=== PATIENT | female | born 1995 | race Caucasian/White ===

== ENCOUNTER 2017-01-20 07:31 | Day surgery (SDC) | payer BC ==
[2017-01-19 15:48] LABS: CHLORIDE,CL 107 mmol/L (98-110); SODIUM,NA 142 mmol/L (136-146)
[~2017-01-20 07:31] MED LIST: Lactated Ringers 1,000 ML IV SCH; Sodium Chloride 0.9% 10 ML Syringe FLUSH PRN; Sodium Chloride 0.9% 2.5 ML Syringe FLUSH PRN
[2017-01-20] MEDS ORDERED: Propofol 200 MG/20 ML SDV ONE (07:41)
[2017-01-20] MEDS ORDERED: fentaNYL 100 MCG/2 ML SDV ONE ×3 (07:41→10:18)
[2017-01-20] MEDS ORDERED: Octyl 2-Cyanoacrylate 1 Tube ONE (07:41)
[2017-01-20] MEDS ORDERED: Midazolam 1 MG/ML 2 ML SDV ONE (07:41)
--- NOTE | 2017-01-20 08:23 | PCM.PREANE ---
Preanesthetic Assessment - Anesthesia/Transfusion/Family Hx Anesthesia History: Prior Anesthesia Without Reaction Family History of Anesthesia Reaction: No Transfusion History: No Prior Transfusion(s) - Review of Systems General: No Symptoms Pulmonary: No Symptoms Cardiovascular: No Symptoms Gastrointestinal: No Symptoms Neurological: No Symptoms Other: Reports: None - Physical Assessment NPO Status Date: 01/19/17 O2 Sat by Pulse Oximetry: 98 Respiratory Rate: 16 Vital Signs: Last Vital Signs Temp 36.2 C 01/20/17 07:40 Pulse 100 01/20/17 07:40 Resp 16 01/20/17 07:40 BP 150/82 H 01/20/17 07:40 Pulse Ox 98 01/20/17 07:40 Height: 1.6 m Weight: 107.048 kg ASA Class: 2 Mental Status: Alert & Oriented x3 Airway Class: Mallampati = 1 Dentition: Reports: Normal Dentition ROM/Head Extension: Full Lungs: Clear to Auscultation, Normal Respiratory Effort Cardiovascular: Regular Rate, Regular Rhythm - Lab Values: Laboratory Last Values WBC 8.75 K/uL (4.0-11.0) 01/19/17 15:16 RBC 4.76 M/uL (4.30-5.90) 01/19/17 15:16 Hgb 12.5 g/dL (12.0-16.0) 01/19/17 15:16 Hct 38.8 % (36.0-46.0) 01/19/17 15:16 MCV 81.5 fL (80.0-98.0) 01/19/17 15:16 MCH 26.3 pg (27.0-32.0) L 01/19/17 15:16 MCHC 32.2 g/dL (31.0-37.0) 01/19/17 15:16 RDW Std Deviation 42.5 fl (28.0-62.0) 01/19/17 15:16 RDW Coeff of Ekta 14 % (11.0-15.0) 01/19/17 15:16 Plt Count 237 K/uL (150-400) 01/19/17 15:16 MPV 9.30 fL (7.40-12.00) 01/19/17 15:16 Nucleated RBC % 0.0 /100WBC 01/19/17 15:16 Nucleated RBCs # 0 K/uL 01/19/17 15:16 Sodium 142 mmol/L (136-146) 01/19/17 15:16 Potassium 3.8 mmol/L (3.5-5.1) 01/19/17 15:16 Chloride 107 mmol/L (98-110) 01/19/17 15:16 Carbon Dioxide 26 mmol/L (21-31) 01/19/17 15:16 BUN 10 mg/dL (6.0-23.0) 01/19/17 15:16 Creatinine 0.9 mg/dL (0.6-1.5) 01/19/17 15:16 Est Cr Clr Drug Dosing 81.79 mL/min 01/19/17 15:16 Estimated GFR (MDRD) > 60.0 ml/min 01/19/17 15:16 Glucose 94 mg/dL (60-110) 01/19/17 15:16 Calcium 9.0 mg/dL (8.8-10.8) 01/19/17 15:16 HCG, Qual NEGATIVE (NEG) 01/19/17 15:16 Blood Type O NEGATIVE 01/19/17 15:16 Antibody Screen NEGATIVE 01/19/17 15:16 - Allergies Allergies/Adverse Reactions: Allergies Allergy/AdvReac Type Severity Reaction Status Date / Time No Known Allergies Allergy Verified 01/17/17 09:58 - Anesthesia Plan Pre-Op Medication Ordered: None - Acknowledgements Anesthesia Type Planned: General Anesthesia Pt an Appropriate Candidate for the Planned Anesthesia: Yes Alternatives and Risks of Anesthesia Discussed w Pt/Guardian: Yes Pt/Guardian Understands and Agrees with Anesthesia Plan: Yes PreAnesthesia Questionnaire HEENT History: Reports: Other (See Below) Other HEENT History: wears glasses/contacts TUBE BLOWER History: Reports: Endocrine/Metabolic History: Reports: Obesity/BMI 30+ - Past Surgical History Head Surgeries/Procedures: Reports: None HEENT Surgical History: Reports: Other (See Below) Other HEENT Surgeries/Procedures: repair of cleft lip x3 - SUBSTANCE USE Smoking Status *Q: Never Smoker Recreational Drug Use History: No - HOME MEDS Home Medications: Home Meds Norgestimate-Ethinyl Estradiol [Tri-Sprintec Tablet] 1 tab PO ASDIRECTED [History] - CURRENT (IN HOUSE) MEDS Current Meds: Current Medications Fentanyl (Sublimaze) 50 mcg IVPUSH Q5M PRN PRN Reason: Pain (severe 7-10) Stop: 01/20/17 13:00 Lactated Ringer's (Ringers, Lactated) 1,000 mls @ 500 mls/hr IV .BOLUS OCTAVIO Last Admin: 01/20/17 07:41 Dose: 500 mls/hr Sodium Chloride (Saline Flush) 10 ml FLUSH ASDIRECTED PRN PRN Reason: Keep Vein Open Sodium Chloride (Saline Flush) 2.5 ml FLUSH ASDIRECTED PRN PRN Reason: Keep Vein Open Discontinued Medications Fentanyl (Sublimaze) Confirm Administered Dose 100 mcg .ROUTE .STK-MED ONE Stop: 01/20/17 07:42 Midazolam HCl (Versed 1 Mg/Ml) Confirm Administered Dose 2 mg .ROUTE .STK-MED ONE Stop: 01/20/17 07:42 Octyl Cyanoacrylate (Dermabond Advance) Confirm Administered Dose 1 applic .ROUTE .STK-MED ONE Stop: 01/20/17 07:42 Propofol (Diprivan 20 Ml) Confirm Administered Dose 200 mg .ROUTE .STK-MED ONE Stop: 01/20/17 07:42
[2017-01-20] MEDS ORDERED: Metoclopramide 10 MG/2 ML SDV ONE (09:08)
[2017-01-20] MEDS ORDERED: Ondansetron 4 MG/2 ML SDV ONE (09:08)
[2017-01-20] MEDS ORDERED: Rocuronium 10 MG/ML 10 ML Syringe ONE (09:08)
[2017-01-20] MEDS ORDERED: Ketorolac 30 MG/ML SDV ONE (09:08)
[2017-01-20] MEDS ORDERED: diphenhydrAMINE 50 MG/ML SDV ONE (09:08)
[2017-01-20] MEDS ORDERED: Neostigmine Methylsulfate 1 MG/ML 5 ML Syringe ONE (09:08)
[2017-01-20] MEDS ORDERED: Lidocaine 2% 5 ML SDV ONE (09:33)
[2017-01-20] MEDS ORDERED: Promethazine 25 MG/ML SDV IM PRN (10:17)
[2017-01-20] MEDS ORDERED: Morphine 2 MG/ML Syringe IVPUSH PRN (10:17)
[2017-01-20] MEDS ORDERED: Ketorolac 30 MG/ML SDV IVPUSH PRN (10:17)
[2017-01-20] MEDS ORDERED: Ketorolac 30 MG/ML SDV IVPUSH ONE (10:17)
[2017-01-20] MEDS ORDERED: Ondansetron 4 MG/2 ML SDV IVPUSH PRN (10:17)
[2017-01-20] MEDS ORDERED: Acetaminophen/oxyCODONE 325-5 MG Tab PO PRN ×2 (10:17)
[2017-01-20] MEDS ORDERED: Morphine 4 MG/ML Syringe IVPUSH PRN (10:17)
--- NOTE | 2017-01-20 10:22 | PCM.OPNOTE ---
- General Post-Op/Procedure Note Date of Surgery/Procedure: 01/20/17 Findings: 10 cm left ovarian cyst Pre Op Diagnosis: Pelvic pain, Left ovarian cyst Post-Op Diagnosis: Same Anesthesia Technique: General ET Tube Primary Surgeon: Kee Arrieta Associate Financial Representative: Rosalina Troncoso EBL in mLs: 25 Complications: None Condition: Good
--- NOTE | 2017-01-20 10:23 | PCM.DCSUM1 ---
Discharge Summary - Discharge Data Discharge Date: 01/20/17 Discharge Disposition: Home, Self-Care 01 Condition: Good - Patient Instructions Diet: Usual Diet as Tolerated Driving: Do Not Drive Showering/Bathing: July Shower Wound/Incision Care: Keep Operative Site/Wound Site Clean and Dry Notify Provider of: Fever, Increased Pain - Discharge Plan Home Medications: Home Meds Norgestimate-Ethinyl Estradiol [Tri-Sprintec Tablet] 1 tab PO ASDIRECTED [History] - General Info Date of Service: 01/20/17 Functional Status: Reports: Pain Controlled - Review of Systems General: Reports: No Symptoms HEENT: Reports: No Symptoms Pulmonary: Reports: No Symptoms Cardiovascular: Reports: No Symptoms Gastrointestinal: Reports: No Symptoms Genitourinary: Reports: No Symptoms Musculoskeletal: Reports: No Symptoms Skin: Reports: No Symptoms Neurological: Reports: No Symptoms Psychiatric: Reports: No Symptoms - Patient Data Vitals - Most Recent: Last Vital Signs Temp 36.2 C 01/20/17 07:40 Pulse 100 01/20/17 07:40 Resp 16 01/20/17 08:23 BP 150/82 H 01/20/17 07:40 Pulse Ox 98 01/20/17 08:23 Weight - Most Recent: 107.048 kg Lab Results - Last 24 hrs: Laboratory Results - last 24 hr 01/19/17 01/19/17 01/19/17 Range/Units 15:16 15:16 15:16 WBC 8.75 (4.0-11.0) K/uL RBC 4.76 (4.30-5.90) M/uL Hgb 12.5 (12.0-16.0) g/dL Hct 38.8 (36.0-46.0) % MCV 81.5 (80.0-98.0) fL MCH 26.3 L (27.0-32.0) pg MCHC 32.2 (31.0-37.0) g/dL RDW Std Deviation 42.5 (28.0-62.0) fl RDW Coeff of Ekta 14 (11.0-15.0) % Plt Count 237 (150-400) K/uL MPV 9.30 (7.40-12.00) fL Nucleated RBC % 0.0 /100WBC Nucleated RBCs # 0 K/uL Sodium 142 (136-146) mmol/L Potassium 3.8 (3.5-5.1) mmol/L Chloride 107 (98-110) mmol/L Carbon Dioxide 26 (21-31) mmol/L BUN 10 (6.0-23.0) mg/dL Creatinine 0.9 (0.6-1.5) mg/dL Est Cr Clr Drug Dosing 81.79 mL/min Estimated GFR (MDRD) > 60.0 ml/min Glucose 94 (60-110) mg/dL Calcium 9.0 (8.8-10.8) mg/dL HCG, Qual NEGATIVE (NEG) Blood Type Antibody Screen 01/19/17 Range/Units 15:16 WBC (4.0-11.0) K/uL RBC (4.30-5.90) M/uL Hgb (12.0-16.0) g/dL Hct (36.0-46.0) % MCV (80.0-98.0) fL MCH (27.0-32.0) pg MCHC (31.0-37.0) g/dL RDW Std Deviation (28.0-62.0) fl RDW Coeff of Ekta (11.0-15.0) % Plt Count (150-400) K/uL MPV (7.40-12.00) fL Nucleated RBC % /100WBC Nucleated RBCs # K/uL Sodium (136-146) mmol/L Potassium (3.5-5.1) mmol/L Chloride (98-110) mmol/L Carbon Dioxide (21-31) mmol/L BUN (6.0-23.0) mg/dL Creatinine (0.6-1.5) mg/dL Est Cr Clr Drug Dosing mL/min Estimated GFR (MDRD) ml/min Glucose (60-110) mg/dL Calcium (8.8-10.8) mg/dL HCG, Qual (NEG) Blood Type O NEGATIVE Antibody Screen NEGATIVE Med Orders - Current: Current Medications Fentanyl (Sublimaze) 50 mcg IVPUSH Q5M PRN PRN Reason: Pain (severe 7-10) Stop: 01/20/17 13:00 Lactated Ringer's (Ringers, Lactated) 1,000 mls @ 500 mls/hr IV .BOLUS OCTAVIO Last Admin: 01/20/17 07:41 Dose: 500 mls/hr Ketorolac Tromethamine (Toradol) 30 mg IVPUSH ONETIME ONE Stop: 01/20/17 10:18 Ketorolac Tromethamine (Toradol) 30 mg IVPUSH Q6H PRN PRN Reason: Pain (severe 7-10) Stop: 01/25/17 10:17 Morphine Sulfate (Morphine) 2 mg IVPUSH Q2H PRN PRN Reason: Pain (severe 7-10) Morphine Sulfate (Morphine) 4 mg IVPUSH Q2H PRN PRN Reason: Pain (severe 7-10) Ondansetron HCl (Zofran) 4 mg IVPUSH Q6H PRN PRN Reason: Nausea/Vomiting Oxycodone/Acetaminophen (Percocet 325-5 Mg) 1 tab PO Q4H PRN PRN Reason: Pain (moderate 4-6) Oxycodone/Acetaminophen (Percocet 325-5 Mg) 2 tab PO Q4H PRN PRN Reason: Pain (moderate 4-6) Promethazine HCl (Phenergan) 25 mg IM Q6H PRN PRN Reason: Nausea/Vomiting Sodium Chloride (Saline Flush) 10 ml FLUSH ASDIRECTED PRN PRN Reason: Keep Vein Open Sodium Chloride (Saline Flush) 2.5 ml FLUSH ASDIRECTED PRN PRN Reason: Keep Vein Open Discontinued Medications Diphenhydramine HCl (Benadryl) Confirm Administered Dose 50 mg .ROUTE .STK-MED ONE Stop: 01/20/17 09:09 Fentanyl (Sublimaze) Confirm Administered Dose 100 mcg .ROUTE .STK-MED ONE Stop: 01/20/17 07:42 Fentanyl (Sublimaze) Confirm Administered Dose 100 mcg .ROUTE .STK-MED ONE Stop: 01/20/17 09:10 Fentanyl (Sublimaze) Confirm Administered Dose 100 mcg .ROUTE .STK-MED ONE Stop: 01/20/17 10:19 Glycopyrrolate () Confirm Administered Dose 1 mg .ROUTE .STK-MED ONE Stop: 01/20/17 09:09 Ketorolac Tromethamine (Toradol) Confirm Administered Dose 30 mg .ROUTE .STK- MED ONE Stop: 01/20/17 09:09 Lidocaine (Xylocaine-Mpf 2%) Confirm Administered Dose 5 ml .ROUTE .STK-MED ONE Stop: 01/20/17 09:34 Metoclopramide HCl (Reglan) Confirm Administered Dose 10 mg .ROUTE .STK-MED ONE Stop: 01/20/17 09:09 Midazolam HCl (Versed 1 Mg/Ml) Confirm Administered Dose 2 mg .ROUTE .STK-MED ONE Stop: 01/20/17 07:42 Neostigmine Methylsulfate (Neostigmine) Confirm Administered Dose 5 mg .ROUTE .STK-MED ONE Stop: 01/20/17 09:09 Octyl Cyanoacrylate (Dermabond Advance) Confirm Administered Dose 1 applic .ROUTE .STK-MED ONE Stop: 01/20/17 07:42 Ondansetron HCl (Zofran) Confirm Administered Dose 4 mg .ROUTE .STK-MED ONE Stop: 01/20/17 09:09 Propofol (Diprivan 20 Ml) Confirm Administered Dose 200 mg .ROUTE .STK-MED ONE Stop: 01/20/17 07:42 Rocuronium [place] (Zemuron) Confirm Administered Dose 100 mg .ROUTE .STK-MED ONE Stop: 01/20/17 09:09 - Exam General: Reports: Alert, Oriented HEENT: Reports: Pupils Equal, Pupils Reactive, EOMI, Mucous Membr. Moist/[place] Neck: Reports: Supple Lungs: Reports: Clear to Auscultation, Normal Respiratory Effort Cardiovascular: Reports: Regular Rate, Regular Rhythm GI/Abdominal Exam: Normal Bowel Sounds, Soft, Non-Tender, No Organomegaly, No Distention, No Abnormal Bruit, No Mass, Pelvis Stable (Female) Exam: Normal External Exam, Normal Speculum Exam, Normal Bimanual Exam Rectal (Female) Exam: Normal Exam, Normal Rectal Tone Back Exam: Reports: Normal Inspection, Full Range of Motion Extremities: Normal Inspection, Normal Range of Motion, Non-Tender, No Pedal Edema, Normal Capillary Refill Skin: Reports: Warm, Dry, Intact Wound/Incisions: Reports: Healing Well Neurological: Reports: No New Focal Deficit Psy/Mental Status: Reports: Alert, Normal Affect, Normal Mood *Q Meaningful Use (DIS) - VTE *Q VTE Criteria *Q: - Stroke *Q Stroke Criteria *Q: - AMI *Q AMI Criteria *Q:
--- NOTE | 2017-01-20 10:40 | PCM.POSTAN ---
POST ANESTHESIA ASSESSMENT - MENTAL STATUS Mental Status: Alert, Oriented - RESPIRATORY Respiratory Status: Respiratory Rate WNL, Airway Patent, O2 Saturation Stable - CARDIOVASCULAR CV Status: Pulse Rate WNL, Blood Pressure Stable - GASTROINTESTINAL GI Status: No Symptoms - PAIN Pain Score: 0 - POST OP HYDRATION Hydration Status: Adequate & Stable
[2017-01-20] MEDS: fentaNYL 100 MCG/2 ML SDV IVPUSH PRN ×2 (10:58→11:05)
--- NOTE | 2017-01-20 12:07 | PCM48HPAN ---
Post Anesthesia Note - EVALUATION WITHIN 48HRS OF ANESTHETIC Vital Signs in Normal Range: Yes Patient Participated in Evaluation: Yes Respiratory Function Stable: Yes Airway Patent: Yes Cardiovascular Function Stable: Yes Hydration Status Stable: Yes Pain Control Satisfactory: Yes Nausea and Vomiting Control Satisfactory: Yes Mental Status Recovered: Yes
--- NOTE | 2017-01-20 17:08 | OR ---
SURGEON: Kee Arrieta MD DATE OF PROCEDURE: PREOPERATIVE DIAGNOSIS: Pelvic pain, left ovarian cyst. POSTOPERATIVE DIAGNOSIS: Pelvic pain, left ovarian cyst. Left ovarian cyst is about 10 cm in diameter. OPERATION PERFORMED: Multiple puncture diagnostic laparoscopy, left ovarian cystectomy, partial distal left salpingectomy. FURNITURE SERVICER: REYES Howard ANESTHESIA: General endotracheal intubation. ESTIMATED BLOOD LOSS: 25 mL. COMPLICATIONS: None. FINDINGS: The right ovary essentially is normal. The left ovary does have a cyst hanging from the end of it about 10 cm in diameter. The left tube stretch all over the cyst and it is felt that it is not salvageable at this time. However, it is felt that the left ovary is partially salvageable by doing left ovarian cystectomy. INDICATION: Refer to the admit note. PROCEDURE IN DETAIL: The patient was brought to the OR, properly identified and after adequate level of anesthesia, the patient was placed in lithotomy position, prepped and draped in sterile fashion as usual. Straight catheter was used to empty the bladder and then Hulka manipulator was placed in uterus for manipulation. The operation shifted abdominally. Stab wound done beneath the umbilicus. The Veress needle was placed in the peritoneal cavity and that cavity after ascertaining the placement of the Veress needle was inflated with 3.5 L of carbon dioxide. Then, the abdomen was entered through 5-mm trocar with a 5-mm scope through it utilizing Visiport technique. Once we were inside of the abdomen, inspection of the abdomen revealed the above-mentioned dictated finding and then a 10-12 trocar placed in the left iliac fossa and 2 5-mm trocar, 1 suprapubically, 1 in the right iliac fossa. The operation was started by inspection of the entire pelvis with the above-mentioned dictated finding. The left tube was stretched and draped all over the 10 cm cyst of the left ovary and it was felt that it was not salvageable at this time and it was felt it would probably in the future will cause her to have a tubal . So I proceeded to do a partial left distal salpingectomy using the Harmonic scalpel and then again using the Harmonic scalpel, the cyst was attached to the distal portion of the ovary. It was almost from the ovary and then using the Harmonic scalpel, this cyst was dissected completely and detached from its attachment to the ovary. Once the cyst was freed, then was placed in an Endobag and aided in removing the cyst. The cyst was deflated and there was only clear fluid in it and after the cyst was deflated and the clear fluid was removed, the Endobag was easily removed through the 10-12 trocar opening. Once this was done, inspection of the entire operative field was done. Irrigation of the pelvis and there was no oozing, no bleeding. The procedure was ended. The instrument and sponge count were correct. The patient tolerated the procedure well, went to recovery room in stable general condition. SYLVIA / DIONICIO /[id number]
== END 2017-01-20 12:29 | disposition home or self-care (01) ==
LOC: MW.SDS 07:31
PROVIDERS: ATTEND Obstetrics & Gynecology
DX: D27.1 Benign neoplasm of left ovary (principal); N73.6 Female pelvic peritoneal adhesions (postinfective); N92.6 Irregular menstruation, unspecified; N94.12 Deep dyspareunia; E66.9 Obesity, unspecified; Z68.41 Body mass index [BMI] 40.0-44.9, adult; Z79.3 Long term (current) use of hormonal contraceptives; Z98.890 Other specified postprocedural states
CPT/HCPCS: 36415; 58661; 58662; 80048; 84703; 85027; 86850; 86900; 86901; A9270; J1200; J1885; J2250; J2405; J2765; J3010; J7120; 00840; 88307; J2704

== ENCOUNTER 2017-01-22 23:20 | Emergency (ER) | payer BC ==
[2017-01-22] MEDS ORDERED: Sodium Chloride 0.9% 2.5 ML Syringe FLUSH PRN (23:49)
[2017-01-22] MEDS ORDERED: Sodium Chloride 0.9% 10 ML Syringe FLUSH PRN (23:49)
[2017-01-22] MEDS ORDERED: Sodium Chloride 0.9% 1,000 ML IV ONE (23:49)
--- NOTE | 2017-01-22 23:54 | EDM.PDOC ---
ED HPI GENERAL MEDICAL PROBLEM - General Chief Complaint: Fever Stated Complaint: FEVER SURGERY Time Seen by Provider: 01/22/17 23:25 - History of Present Illness INITIAL COMMENTS - FREE TEXT/NARRATIVE: HISTORY AND PHYSICAL: History of present illness: The patient is a 22-year-old female who underwent laparoscopic surgery on January [address] Arrieta and according to the operative note had a left ovarian cystectomy and a partial left distal salpingectomy on the left. The patient was discharged home the next day and says she is doing well and then today started having fevers up to 101. She said the fever started several hours ago and she took Aleve one hour ago and is currently afebrile. She says she has been getting up and moving around but maybe not as much as usual. She has not had a cough sore throat runny nose vomiting or diarrhea and has no leg pain or swelling. She says her incisions are healing nicely and she has not noticed any redness or drainage at these incisions. She has some discomfort in her right lower abdomen but it is not excessive and she attributed that to the surgical procedure. She has no back or flank pain no neck pain but does complaint of frontal headache. She was not given an incentive spirometer for home. She has no chest pain shortness of breath cough runny nose. The patient states that her IV for the same-day surgery was in her right hand and there is no tenderness or redness that she's noted there. She has been eating and having bowel movements and denies any urinary complaints such as dysuria frequency or urgency. Review of systems: As per history of present illness and below otherwise all systems reviewed and negative. Past medical history: As per history of present illness and as reviewed below otherwise noncontributory. Surgical history: As per history of present illness and as reviewed below otherwise noncontributory. Social history: No reported history of drug or alcohol abuse. Family history: As per history of present illness and as reviewed below otherwise noncontributory. Physical exam: General: Well-developed overweight female who is nontoxic and vital signs of been reviewed by me. HEENT: Atraumatic, normocephalic, pupils reactive, negative for conjunctival pallor or scleral icterus, mucous membranes tacky throat clear, neck supple, nontender, trachea midline. There is no cervical adenopathy or nuchal rigidity Lungs: Clear to auscultation with diminished breath sounds in the bases, breath sounds equal bilaterally, chest nontender. There is no worker breathing stridor or wheezing appreciated. Heart: S1S2, regular rhythm but tachycardic rate of my evaluation, negative for clicks, rubs, or JVD. Abdomen: Soft, nondistended, bowel sounds are slightly hypoactive. The 3 incisions are clean and dry without any erythema drainage or tenderness. The abdomen has some mild tenderness on deep palpation in the right lower abdomen but there is no rebound or guarding and no tympany on percussion. Negative for masses or hepatosplenomegaly. Negative for costovertebral tenderness. Pelvis: Stable nontender. Genitourinary: Deferred. Rectal: Deferred. Extremities: Atraumatic, negative for cords or calf pain. Neurovascular unremarkable. There is no calf pain specifically no swelling and no leg asymmetry. At the dorsal aspect of her right hand where the IV was started for surgery there is no redness swelling tenderness noted. Neuro: Awake, alert, oriented. Cranial nerves II through XII unremarkable. Cerebellum unremarkable. Motor and sensory unremarkable throughout. Exam nonfocal. Diagnostics: CBC CMP lactic acid blood cultures 2 UA and urine culture chest x-ray influenza and rapid strep Therapeutics: IV, IV fluids 0108:Patient's heart rate has improved with hydration and is now 120. We will give a second liter of fluid and await the UA results. We will contact Dr. Arrieta this case once all tests results have been obtained. 0128: Case was discussed with Dr. Arrieta. He agrees to hold off on CT scan at this time and follow up the culture results and follow the temperatures. Patient is currently receiving her second liter of IV fluids and says she is feeling much improved. I've given her a new thermometer and have advised her on need to document temperatures very specifically when she feels that she hot to document the temperature and what she is taking for it whether it be Tylenol Aleve or Motrin. I've also advised her to return to the ER sooner if she starts to have more profound abdominal pain vomiting shortness of breath or any other new symptoms. I also advised her to call the clinic first thing Tuesday morning to follow-up with Dr. Arrieta. 0205: Repeat heart rate after second liter of fluids is 108. We'll plan to discharge the patient home with strict precautions as above. Impression: Fever status post laparoscopic surgery stable Definitive disposition and diagnosis as appropriate pending reevaluation and review of above. 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: Endocrine/Metabolic History: Reports: Obesity/BMI 30+ - Past Surgical History Head Surgeries/Procedures: Reports: None HEENT Surgical History: Reports: Other (See Below) Other HEENT Surgeries/Procedures: repair of cleft lip x3 Female Surgical History: Reports: Other (See Below) Other Female Surgeries/Procedures: laparoscopic surgery for removal of left ovarian cyst Social & Family History - Family History Family Medical History: Noncontributory - Tobacco Use Smoking Status *Q: Never Smoker Second Hand Smoke Exposure: No - Caffeine Use Caffeine Use: Reports: Coffee, Soda - Recreational Drug Use Recreational Drug Use: No ED ROS GENERAL - Review of Systems Review Of Systems: ROS reveals no pertinent complaints other than HPI. ED EXAM, GENERAL - Physical Exam Exam: See Below (See dictation) Course - Vital Signs Last Recorded V/S: Last Vital Signs Temp 36.6 C 01/23/17 01:20 Pulse 120 H 01/23/17 01:20 Resp 18 01/23/17 01:20 BP 110/73 01/23/17 01:20 Pulse Ox 98 01/23/17 01:20 - Orders/Labs/Meds Orders: Active Orders 24 hr Category Date Time Status Chest 2V [CR] Stat Exams 01/22/17 23:49 Taken CULTURE BLOOD [BC] Stat Lab 01/22/17 23:35 Received CULTURE BLOOD [BC] Stat Lab 01/22/17 23:58 Received CULTURE STREP A CONFIRMATION [RM] Stat Lab 01/22/17 23:52 Results CULTURE URINE [] Stat Lab 01/22/17 23:49 Received STREP SCRN A RAPID W CULT CONF [RM] Stat Lab 01/22/17 23:52 Results Sodium Chloride 0.9% [Saline Flush] Med 01/22/17 23:49 Active 10 ml FLUSH ASDIRECTED PRN Sodium Chloride 0.9% [Saline Flush] Med 01/22/17 23:49 Active 2.5 ml FLUSH ASDIRECTED PRN Blood Culture x2 Reflex Set [OM.PC] Stat Oth 01/22/17 23:49 Ordered Saline Lock Insert [OM.PC] Stat Oth 01/22/17 23:48 Ordered Medication Orders Sodium Chloride (Saline Flush) 10 ml FLUSH ASDIRECTED PRN PRN Reason: Keep Vein Open Sodium Chloride (Saline Flush) 2.5 ml FLUSH ASDIRECTED PRN PRN Reason: Keep Vein Open Labs: Laboratory Tests 01/22/17 01/22/17 01/22/17 Range/Units 23:35 23:35 23:35 WBC 9.47 (4.0-11.0) K/uL RBC 4.56 (4.30-5.90) M/uL Hgb 11.9 L (12.0-16.0) g/dL Hct 36.6 (36.0-46.0) % MCV 80.3 (80.0-98.0) fL MCH 26.1 L (27.0-32.0) pg MCHC 32.5 (31.0-37.0) g/dL RDW Std Deviation 41.2 (28.0-62.0) fl RDW Coeff of Ekta 14 (11.0-15.0) % Plt Count 186 (150-400) K/uL MPV 9.20 (7.40-12.00) fL Neut % (Auto) 82.8 H (48.0-80.0) % Lymph % (Auto) 11.3 L (16.0-40.0) % [place] % (Auto) 5.1 (0.0-15.0) % Eos % (Auto) 0.6 (0.0-7.0) % Baso % (Auto) 0.2 (0.0-1.5) % Neut # (Auto) 7.8 H (1.4-5.7) K/uL Lymph # (Auto) 1.1 (0.6-2.4) K/uL [place] # (Auto) 0.5 (0.0-0.8) K/uL Eos # (Auto) 0.1 (0.0-0.7) K/uL Baso # (Auto) 0.0 (0.0-0.1) K/uL Nucleated RBC % 0.0 /100WBC Nucleated RBCs # 0 K/uL Lactate 2.0 (0.20-2.00) mmol/L Sodium 137 (136-146) mmol/L Potassium 3.7 (3.5-5.1) mmol/L Chloride 104 (98-110) mmol/L Carbon Dioxide 23 (21-31) mmol/L BUN 9 (6.0-23.0) mg/dL Creatinine 0.9 (0.6-1.5) mg/dL Est Cr Clr Drug Dosing 81.79 mL/min Estimated GFR (MDRD) > 60.0 ml/min Glucose 143 H (60-110) mg/dL Calcium 9.0 (8.8-10.8) mg/dL Total Bilirubin 0.3 (0.1-1.5) mg/dL AST 16 (5-40) IU/L ALT 14 (8-54) IU/L Alkaline Phosphatase 100 (40-150) Total Protein 7.2 (6.0-8.0) g/dL Albumin 3.8 (3.5-5.0) g/dL Globulin 3.4 (2.0-3.5) g/dL Albumin/Globulin Ratio 1.1 L (1.3-2.8) Urine Color Urine Appearance Urine pH (5.0-8.0) Ur Specific [place] (1.001-1.035) Urine Protein (NEGATIVE) mg/dL Urine Glucose (UA) (NEGATIVE) mg/dL Urine Ketones (NEGATIVE) mg/dL Urine Occult Blood (NEGATIVE) Urine Nitrite (NEGATIVE) Urine Bilirubin (NEGATIVE) Urine Urobilinogen (<2.0) EU/dL Ur Leukocyte Esterase (NEGATIVE) Urine RBC (0-2/HPF) Urine WBC (0-5/HPF) Ur Epithelial Cells (NONE-FEW) Urine Bacteria (NEGATIVE) 01/23/17 Range/Units 00:56 WBC (4.0-11.0) K/uL RBC (4.30-5.90) M/uL Hgb (12.0-16.0) g/dL Hct (36.0-46.0) % MCV (80.0-98.0) fL MCH (27.0-32.0) pg MCHC (31.0-37.0) g/dL RDW Std Deviation (28.0-62.0) fl RDW Coeff of Ekta (11.0-15.0) % Plt Count (150-400) K/uL MPV (7.40-12.00) fL Neut % (Auto) (48.0-80.0) % Lymph % (Auto) (16.0-40.0) % [place] % (Auto) (0.0-15.0) % Eos % (Auto) (0.0-7.0) % Baso % (Auto) (0.0-1.5) % Neut # (Auto) (1.4-5.7) K/uL Lymph # (Auto) (0.6-2.4) K/uL [place] # (Auto) (0.0-0.8) K/uL Eos # (Auto) (0.0-0.7) K/uL Baso # (Auto) (0.0-0.1) K/uL Nucleated RBC % /100WBC Nucleated RBCs # K/uL Lactate (0.20-2.00) mmol/L Sodium (136-146) mmol/L Potassium (3.5-5.1) mmol/L Chloride (98-110) mmol/L Carbon Dioxide (21-31) mmol/L BUN (6.0-23.0) mg/dL Creatinine (0.6-1.5) mg/dL Est Cr Clr Drug Dosing mL/min Estimated GFR (MDRD) ml/min Glucose (60-110) mg/dL Calcium (8.8-10.8) mg/dL Total Bilirubin (0.1-1.5) mg/dL AST (5-40) IU/L ALT (8-54) IU/L Alkaline Phosphatase (40-150) Total Protein (6.0-8.0) g/dL Albumin (3.5-5.0) g/dL Globulin (2.0-3.5) g/dL Albumin/Globulin Ratio (1.3-2.8) Urine Color YELLOW Urine Appearance SLT CLOUDY Urine pH 6.0 (5.0-8.0) Ur Specific [place] <= 1.005 (1.001-1.035) Urine Protein NEGATIVE (NEGATIVE) mg/dL Urine Glucose (UA) NEGATIVE (NEGATIVE) mg/dL Urine Ketones NEGATIVE (NEGATIVE) mg/dL Urine Occult Blood MODERATE (NEGATIVE) Urine Nitrite NEGATIVE (NEGATIVE) Urine Bilirubin NEGATIVE (NEGATIVE) Urine Urobilinogen 0.2 (<2.0) EU/dL Ur Leukocyte Esterase TRACE (NEGATIVE) Urine RBC 0-3 (0-2/HPF) Urine WBC 1-5 (0-5/HPF) Ur Epithelial Cells MODERATE (NONE-FEW) Urine Bacteria FEW (NEGATIVE) Meds: Medications Generic Name Dose Route Start Last Admin Trade Name Freq PRN Reason Stop Dose Admin Sodium Chloride 10 ml 01/22/17 23:49 Saline Flush FLUSH ASDIRECTED PRN Keep Vein Open Sodium Chloride 2.5 ml 01/22/17 23:49 Saline Flush FLUSH ASDIRECTED PRN Keep Vein Open Discontinued Medications Generic Name Dose Route Start Last Admin Trade Name Freq PRN Reason Stop Dose Admin Sodium Chloride 1,000 mls @ 999 mls/hr 01/22/17 23:49 01/22/17 23:55 Normal Saline IV 01/23/17 00:49 999 mls/hr STAT ONE Administration Sodium Chloride 1,000 mls @ 999 mls/hr 01/23/17 01:07 01/23/17 01:13 Normal Saline IV 01/23/17 02:07 999 mls/hr STAT ONE Administration Departure - Departure Time of Disposition: 02:07 Disposition: Home, Self-Care 01 Condition: Good Clinical Impression: Postoperative fever - Discharge Information Instructions: Fever, Adult Referrals: Kee Arrieta MD [Primary Care Provider] - Forms: ED Department Discharge Additional Instructions: The following information is given to patients seen in the emergency department who are being discharged to home. This information is to outline your options for follow-up care. We provide all patients seen in our emergency department with a follow-up referral. The need for follow-up, as well as the timing and circumstances, are variable depending upon the specifics of your emergency department visit. If you don't have a primary care physician on staff, we will provide you with a referral. We always advise you to contact your personal physician following an emergency department visit to inform them of the circumstance of the visit and for follow-up with them and/or the need for any referrals to a consulting specialist. The emergency department will also refer you to a specialist when appropriate. This referral assures that you have the opportunity for followup care with a specialist. All of these measure are taken in an effort to provide you with optimal care, which includes your followup. Under all circumstances we always encourage you to contact your private physician who remains a resource for coordinating your care. When calling for followup care, please make the office aware that this follow-up is from your recent emergency room visit. If for any reason you are refused follow-up, please contact the [facility] emergency department at and ask to speak to the emergency department charge nurse. [facility] Primary care-[facility] [address] Arrieta's office on Tuesday morning at 8 AM to get a follow-up appointment in the next few days. Return to ER as needed and as we discussed. Continue to document temperatures with the thermometer you have been given and the medications that you are taking to help them. Please push hydration - My Orders Last 24 Hours: My Active Orders 01/22/17 23:35 CULTURE BLOOD [BC] Stat 01/22/17 23:48 Saline Lock Insert [OM.PC] Stat 01/22/17 23:49 Chest 2V [CR] Stat CULTURE URINE [RM] Stat Sodium Chloride 0.9% [Saline Flush] 10 ml FLUSH ASDIRECTED PRN Sodium Chloride 0.9% [Saline Flush] 2.5 ml FLUSH ASDIRECTED PRN Blood Culture x2 Reflex Set [OM.PC] Stat 01/22/17 23:52 CULTURE STREP A CONFIRMATION [RM] Stat STREP SCRN A RAPID W CULT CONF [RM] Stat 01/22/17 23:58 CULTURE BLOOD [BC] Stat - Assessment/Plan Last 24 Hours: My Active Orders 01/22/17 23:35 CULTURE BLOOD [BC] Stat 01/22/17 23:48 Saline Lock Insert [OM.PC] Stat 01/22/17 23:49 Chest 2V [CR] Stat CULTURE URINE [RM] Stat Sodium Chloride 0.9% [Saline Flush] 10 ml FLUSH ASDIRECTED PRN Sodium Chloride 0.9% [Saline Flush] 2.5 ml FLUSH ASDIRECTED PRN Blood Culture x2 Reflex Set [OM.PC] Stat 01/22/17 23:52 CULTURE STREP A CONFIRMATION [RM] Stat STREP SCRN A RAPID W CULT CONF [RM] Stat 01/22/17 23:58 CULTURE BLOOD [BC] Stat
[2017-01-23 00:27] LABS: CHLORIDE,CL 104 mmol/L (98-110); SODIUM,NA 137 mmol/L (136-146)
[2017-01-23] MEDS ORDERED: Sodium Chloride 0.9% 1,000 ML IV ONE (01:07)
--- NOTE | 2017-01-24 15:59 | CR ---
EXAM DATE: 01/22/17 PATIENT'S AGE: 22 Patient: KEVEN MCGEE Facility: [place], [place] Site . Site : 1995 Study: XRay Chest [id number] 12:13:20 AM Ordering Physician: Mo Olivia Final Report: INDICATION: FEVER TECHNIQUE: Chest radiograph 2 views COMPARISON: None FINDINGS: Cardiovascular and mediastinum: The cardiac silhouette is normal in appearance and size. Mediastinum is within normal limits. Lungs and pleural spaces: Both lungs are unremarkable in appearance. No sign of pleural effusion. No pneumothorax is seen. Bones and soft tissues: No significant findings. IMPRESSION: 1. No acute cardiopulmonary disease seen. Dictated by: Fish Vasquez MD @ 01/23/2017 00:15:11 (Electronic Signature) Report Signed by Proxy. [facility]achel
== END 2017-01-23 02:15 | disposition home or self-care (01) ==
LOC: MW.ED 23:20
DX: R50.82 Postprocedural fever (principal); Z90.721 Acquired absence of ovaries, unilateral
CPT/HCPCS: 71020; 80053; 81001; 83605; 85025; 87040; 87081; 87086; 87804; 87880; 96360; 96361; 99284; J7040

== ENCOUNTER 2023-12-23 16:55 | Inpatient (IN) | payer BC ==
[2023-12-23] MEDS ORDERED: Methylergonovine 0.2 MG/1 ML Amp IM PRN (17:15)
[2023-12-23] MEDS ORDERED: Butorphanol 2 MG/ML SDV IVPUSH PRN (17:15)
[2023-12-23] MEDS ORDERED: Ondansetron 4 MG/2 ML SDV IVPUSH PRN (17:15)
[2023-12-23] MEDS ORDERED: Lidocaine 1% 50 ML MDV INJECT PRN (17:15)
[2023-12-23] MEDS ORDERED: Sodium Chloride 0.9% 20 ML SDV IV PRN (17:15)
[2023-12-23] MEDS ORDERED: Carboprost Tromethamine 250 MCG/1 mL Vial IM PRN (17:15)
[2023-12-23] MEDS ORDERED: Water For Irrigation,Sterile 1,000 ML Container IRR PRN (17:15)
[2023-12-23] MEDS ORDERED: Sodium Chloride 0.9% 2.5 ML Syringe FLUSH PRN (17:15)
[2023-12-23] MEDS ORDERED: Misoprostol 200 MCG Tab PO PRN (17:15)
[2023-12-23] MEDS ORDERED: Sodium Chloride 0.9% 10 ML Syringe FLUSH PRN (17:15)
[2023-12-23] MEDS ORDERED: Misoprostol 25 MCG (1/4 of 100 MCG) Tab VAG PRN ×2 (17:15)
[2023-12-23 18:07] LABS: HEMATOCRIT 34.5 % (37.0-47.0); HEMOGLOBIN 11.3 g/dL (12.0-16.0); MEAN CORPUSCULAR HGB CONC 32.8 g/dL (32.0-36.0); MEAN CORPUSCULAR VOLUME 85.4 fL (83.0-99.0); MEAN PLATELET VOLUME 9.3 fL (9.4-12.3); PLATELET COUNT,PLT 144 K/uL (150-400); RED BLOOD CELL COUNT 4.04 M/uL (4.10-5.30); WHITE BLOOD CELL COUNT,WBC 9.95 K/uL (3.9-11.3)
[2023-12-23] MEDS: Lactated Ringers 1,000 ML IV SCH (18:10)
[2023-12-23] MEDS: Oxytocin/0.9 % Sodium Chloride 30 UNIT/500 ML BAG IV SCH (18:12)
[2023-12-23] MEDS: Terbutaline 1 MG/ML SDV SUBCUT PRN (18:27)
[2023-12-23] MEDS ORDERED: ePHEDrine 50 MG/ML SDV IVPUSH PRN (21:41)
[2023-12-23] MEDS ORDERED: Phenylephrine HCl In 0.9% NaCl 1 MG/10 ML Syringe IVPUSH PRN (21:41)
[2023-12-23] MEDS ORDERED: dexmedeTOMIDine HCl 200 MCG/2 ML SDV EPIDUR SCH (21:45)
[2023-12-23] MEDS: Ropivacaine HCl/PF 400 MG in Premix Bag 1 BAG EPIDUR SCH (23:17)
[2023-12-24] MEDS: Oxytocin/0.9 % Sodium Chloride 30 UNIT/500 ML BAG IV SCH (02:45)
[2023-12-24] MEDS ORDERED: Ibuprofen 800 MG Tab PO PRN (03:07)
[2023-12-24] MEDS ORDERED: Misoprostol 200 MCG Tab PO PRN (03:07)
[2023-12-24] MEDS ORDERED: Methylergonovine 0.2 MG/1 ML Amp IM PRN (03:07)
[2023-12-24 03:27] LABS: PH,UMBILICAL ARTERIAL 7.236 (7.18-7.38); PH,UMBILICAL VENOUS 7.353 (7.25-7.45)
[2023-12-24] MEDS: Acetaminophen 500 MG Tab PO PRN (05:50)
[2023-12-24] MEDS: Lanolin 100% Cream 7 GM Tube TOP PRN (09:04)
[2023-12-24] MEDS: Prenatal Multivitamin with Calcium/Folic Acid/Iron Tab PO SCH (09:04)
[2023-12-24] MEDS: Docusate Sodium 100 MG Cap PO PRN (09:04)
[2023-12-24] MEDS: Ferrous Sulfate 325 MG Tab PO SCH (09:04)
[2023-12-24] MEDS: Benzocaine/Menthol 20%-0.5% Spray 78 GM Cannister TOP PRN (09:05)
[2023-12-24] MEDS: Witch Hazel Medicated Pads 40/Jar TOP PRN (09:05)
== END 2023-12-24 16:55 | disposition home or self-care (01) | DRG 560 ==
LOC: MW.OB 16:55 → MW.OBCHECK 16:55 → MW.OB 17:15 → MW.OBCHECK 17:15 → OBSVTOIN 12-24 02:41 → MW.OB 12-24 06:12
PROVIDERS: ADMIT Obstetrics & Gynecology; ATTEND Obstetrics & Gynecology
PROC: 10E0XZZ Delivery of Products of Conception, External Approach (ICD-10-PCS; principal; 2023-12-24)
PROC: 10E0XZZ Delivery of Products of Conception, External Approach (ICD-10-PCS; 2023-12-24)
PROC: 3E0334Z Introduction of Serum, Toxoid and Vaccine into Peripheral Vein, Percutaneous Approach (ICD-10-PCS; 2023-12-24)
PROC: 10H07YZ Insertion of Other Device into Products of Conception, Via Natural or Artificial Opening (ICD-10-PCS; 2023-12-24)
PROC: 10907ZC Drainage of Amniotic Fluid, Therapeutic from Products of Conception, Via Natural or Artificial Opening (ICD-10-PCS; 2023-12-24)
DX: O13.4 Gestational [pregnancy-induced] hypertension without significant proteinuria, complicating childbirth (principal); Z37.0 Single live birth; Z3A.39 39 weeks gestation of pregnancy; O26.893 Other specified pregnancy related conditions, third trimester; Z67.41 Type O blood, Rh negative; O99.214 Obesity complicating childbirth
CPT/HCPCS: 36415; 51702; 59025; 59409; 59414; 82803; 85027; 85460; 86592; 86850; 86900; 86901; A9270-GY; J2590; J2790; J2795; J3105; J7120